=== PATIENT | male | born 1995 | race Two or more races ===

== ENCOUNTER 2018-11-20 19:33 | Emergency (ER) | payer MEDICAID, OTHER ==
[~2018-11-20] VITALS: Ht 175.3 cm; Wt 88.5 kg
[2018-11-20 19:41] VITALS: BP 147/72
[2018-11-20] MEDS ORDERED: BACLOFEN 10 MG TAB PO ONE (23:00)
[2018-11-20] MEDS ORDERED: HYDROcodone-ACET 10/325MG TAB PO ONE (23:00)
== END 2018-11-20 23:15 | disposition home or self-care (01) ==
LOC: ER 19:33
DX: M62.838 Other muscle spasm (principal); V49.49XA Driver injured in collision with other motor vehicles in traffic accident, initial encounter; Y93.89 Activity, other specified; Y99.8 Other external cause status; Y92.410 Unspecified street and highway as the place of occurrence of the external cause
CPT/HCPCS: 70450; 72100; 73562

== ENCOUNTER 2023-10-23 22:40 | Emergency (ER) | payer MEDICAID ==
[~2023-10-23] VITALS: Ht 172.7 cm; Wt 100.0 kg
[2023-10-24] MEDS: HYDROcodone-ACET 5/325MG TAB PO ONE (00:30)
[2023-10-24] MEDS ORDERED: BACL10TA PO (00:30)
[2023-10-24] MEDS ORDERED: IBUP1TAB5 PO (00:30)
[2023-10-24] MEDS: KETOROLAC TROMETH 60MG/2ML VIAL IM ONE (00:30)
[2023-10-24 01:25] VITALS: BP 120/65; PULSE 72; RESP 18; TEMP 97.8; O2SAT 96
== END 2023-10-24 01:20 | disposition home or self-care (01) ==
LOC: ER 22:40
DX: G89.29 Other chronic pain (principal); M54.50 Low back pain, unspecified; R07.81 Pleurodynia; Z79.1 Long term (current) use of non-steroidal anti-inflammatories (NSAID); Z79.899 Other long term (current) drug therapy
CPT/HCPCS: 96372; 99283; J1885